=== PATIENT | female | born 1940 | race Caucasian/White ===

== ENCOUNTER 2016-10-24 09:12 | Outpatient (CLI) | payer MEDICARE, OTHER ==
--- NOTE | 2016-10-24 09:48 | RAD ---
PA AND LATERAL VIEWS CHEST: HISTORY: Bronchitis, left-sided mastectomy. FINDINGS: Comparison is made with the exam of 11/07/14. The heart size is normal. The aorta is tortuous. The lungs are expanded without confluent areas of consolidation, pneumothorax, or pleural effusions. There are degenerative changes in the spine. IMPRESSION: No acute process. POS: [facility]
== END 2016-10-24 09:13 | disposition home or self-care (01) ==
LOC: MADRAD 09:12
PROVIDERS: ATTEND Obstetrics & Gynecology
DX: J40 Bronchitis, not specified as acute or chronic (principal)
CPT/HCPCS: 71020

== ENCOUNTER 2017-06-04 18:06 | Emergency (ER) | payer MEDICARE, OTHER ==
[2017-06-04] MEDS ORDERED: Nitroglycerin 0.4 MG TAB 1 EACH ONE (18:26)
[2017-06-04 19:24] LABS: #Basophils 0.1 thou/uL (0.0-0.2); #Eosinphils 0.3 thou/uL (0.0-0.7); #Lymphocytes 1.9 thou/uL (1.20-3.40); #Neutrophils 7.3 thou/uL (1.40-6.50); %Basophils 0.8 % (0.0-1.0); %Eosinophils 2.7 % (0.0-10.0); %Lymphocytes 18.2 % (21.0-51.0); %Neutrophils 69.4 % (42.0-75.0); ALT (SGPT) 32 U/L (8-55); AST (SGOT) 26 U/L (5-34); Albumin 4.5 g/dL (3.4-4.8); Alkaline Phosphatase 50 U/L (40-150); Anion Gap 19 mmol/L (10-20); BUN (Urea Nitrogen) 16 mg/dL (9.8-20.1); Bilirubin, Total 0.4 mg/dL (0.2-1.2); CK (CPK) 155 U/L (29-168); CKMB 2.6 ng/mL (0-6.6); Calc. Creatinine Clearance 0 mL/min (70-130); Calcium 10.2 mg/dL (7.8-10.44); Carbon Dioxide 26 mmol/L (23-31); Chloride 101 mmol/L (98-107); Estimated GFR-MDRD 44; Globulin 3.3 g/dL (2.4-3.5); Glucose 118 mg/dL (83-110); Hemoglobin 15.6 g/dL (12.0-16.0); Mean Corpuscular Hemoglobin 28.5 pg (27.0-31.0); Mean Corpuscular Volume 89.3 fl (81.0-99.0); Mean Platelet Volume 8.6 fL (7.4-10.4); Platelet Count 192 thou/uL (130-400); Potassium 4.1 mmol/L (3.5-5.1); Protein, Total 7.8 g/dL (6.0-8.3); RBC Distribution Width 14.8 % (11.5-14.5); Red Blood Cell (RBC) Count 5.48 mill/uL (4.20-5.40); Sodium 142 mmol/L (136-145); Troponin I 0.018 ng/mL (< 0.028); White Blood Cell (WBC) Count 10.6 thou/uL (4.8-10.8)
[2017-06-04] MEDS ORDERED: Lorazepam 2 MG/ML VIAL ONE (19:30)
[2017-06-04] MEDS ORDERED: Morphine 4 MG/ML VIAL ONE (19:30)
[2017-06-04] MEDS ORDERED: Aspirin 325 MG TAB ONE (19:31)
[2017-06-04 19:33] LABS: INR-International Normal Ratio 0.9; PTT 26.5 SEC (22.9-36.1); Prothrombin Time 12.3 SEC (12.0-14.7)
--- NOTE | 2017-06-04 21:23 | RAD ---
PORTABLE CHEST: Date: 06-04-17 Provided Clinical History: Chest pain. FINDINGS: Comparison 11-07-14. Cardiac and mediastinal silhouette is unchanged in appearance. Right subclavian cardiac pacing device is now present with leads tip overlying the expected location of RA and RV. No focal consolidation, pleural fluid, or pneumothorax apparent. IMPRESSION: No evidence for an acute cardiopulmonary process. POS: [facility]
== END 2017-06-04 21:05 | disposition short-term general hospital (02) ==
LOC: MADERS 18:06
DX: I20.0 Unstable angina (principal); I10 Essential (primary) hypertension; F17.210 Nicotine dependence, cigarettes, uncomplicated
CPT/HCPCS: 71010; 80053; 82553; 83735; 83880; 84484; 85025; 85610; 85730; 93005; 96374; 96375; J2060; J2270

== ENCOUNTER 2025-05-17 14:23 | Emergency (ER) | payer MEDICARE ==
[~2025-05-17 14:23] MED LIST: Iopamidol 370 76% 100 ML VIAL ONE
[2025-05-17 14:47] LABS: Glucose, Urine (Dipstick) Negative (Negative); Leukocyte Trace (Negative); Protein, Urine (Dipstick) Negative (Neg-Trace); Specific Gravity, Urine 1.015 (1.005-1.030)
[2025-05-17 14:55] LABS: Bacteria/HPF Rare-Few HPF (None Seen); CAUTI Indications for Culture Dysuria,urgency,freq; Mucous/LPF Few LPF (<2+); RBC/HPF 0-3 HPF (0-3); Urine Culture Reflex No No
[2025-05-17 15:44] LABS: #Basophils 0.0 thou/uL (0.0-0.2); #Eosinophils 0.1 thou/uL (0.0-0.7); #Lymphocytes 0.8 thou/uL (1.20-3.40); #Monocytes 0.4 thou/uL (0.11-0.59); #Neutrophils 2.6 thou/uL (1.40-6.50); %Basophils 1.1 % (0.0-1.0); %Eosinophils 3.4 % (0.0-10.0); %Lymphocytes 20.8 % (21.0-51.0); %Monocytes 9.3 % (0.0-10.0); %Neutrophils 65.3 % (42.0-75.0); Hematocrit 37.4 % (36.0-47.0); Hemoglobin 12.4 g/dL (12.0-16.0); Mean Corpuscular Hemoglobin 33.1 pg (27.0-31.0); Mean Corpuscular Volume 99.7 fl (78.0-98.0); Platelet Count 129 10x3/uL (130-400); Red Blood Cell (RBC) Count 3.76 mill/uL (4.20-5.40); White Blood Cell (WBC) Count 4.0 10x3/uL (4.8-10.8)
[2025-05-17 16:02] LABS: ALT (SGPT) 17 U/L (Less than 34); AST (SGOT) 31 U/L (11-34); Albumin 4.2 g/dL (3.1-4.5); Alkaline Phosphatase 40 U/L (40-110); Anion Gap 17 mmol/L (10-20); BUN (Urea Nitrogen) 16 mg/dL (9.8-20.1); Bilirubin, Total 0.8 mg/dL (0.3-1.2); Calc. Creatinine Clearance 0 mL/min (70-130); Calcium 9.5 mg/dL (7.8-10.44); Carbon Dioxide 26 mmol/L (23-31); Chloride 102 mmol/L (98-107); Globulin 2.2 g/dL (2.4-3.5); Glucose 104 mg/dL (83-110); Lipase 9 U/L (8-78); Potassium 4.0 mmol/L (3.5-5.1); Sodium 141 mmol/L (136-145)
[2025-05-17] MEDS ORDERED: HUM PROTHROMBIN CPLX(PCC) 1,000 UNITS VIAL ONE (16:23)
== END 2025-05-17 17:50 | disposition home or self-care (01) ==
LOC: MADERS 14:23
DX: R10.30 Lower abdominal pain, unspecified (principal); I10 Essential (primary) hypertension; Z95.0 Presence of cardiac pacemaker; Z87.891 Personal history of nicotine dependence; Z79.899 Other long term (current) drug therapy
CPT/HCPCS: 74177; 80053; 81001; 83690; 85025; J7168; Q9967